=== PATIENT | female | born 1980 ===

== ENCOUNTER 2018-06-06 11:08 | Inpatient (IN) | payer OTHER ==
[~2018-06-06] VITALS: Ht 172.7 cm; Wt 78.0 kg
[2018-06-17] MEDS ORDERED: PRENATAL TABLE1 EAC4 PO (08:33)
== END 2018-06-19 12:10 | disposition home or self-care (01) | DRG 807 ==
LOC: OB/GYN 06-10 15:15 → LDR 06-17 00:14 → OB/GYN 06-17 00:28 → LDR 06-17 01:18 → OB/GYN 06-17 11:27
PROVIDERS: ADMIT Specialist
PROC: 10E0XZZ Delivery of Products of Conception, External Approach (ICD-10-PCS; principal; 2018-06-17)
PROC: 4A0HXFZ Measurement of Products of Conception, Cardiac Rhythm, External Approach (ICD-10-PCS; 2018-06-17)
DX: O80 Encounter for full-term uncomplicated delivery (principal); Z37.0 Single live birth; Z3A.38 38 weeks gestation of pregnancy; Z22.330 Carrier of Group B streptococcus